=== PATIENT | male | born 1955 | race Caucasian/White ===

== ENCOUNTER 2018-06-22 11:14 | Outpatient (CLI) | payer MEDICAID, SELFPAY ==
[2018-06-22 13:20] LABS: ALT 62 U/L (12-78); AST 54 U/L (15-37); Albumin 3.6 g/dL (3.4-5.0); Alkaline Phosphatase 108 U/L (46-116); Bilirubin, Direct 0.23 mg/dL (0.00-0.20); Bilirubin, Total 0.8 mg/dL (0.2-1.0); Glucose 99 mg/dL (70-100); Total Protein 7.4 g/dL (6.4-8.2)
== END 2018-06-22 11:34 ==
PROVIDERS: PCP Family Medicine; Visit Provider Family Medicine
DX: F10.20 Alcohol dependence, uncomplicated (principal); Z13.1 Encounter for screening for diabetes mellitus
CPT/HCPCS: 36415; 80076; 82947

== ENCOUNTER 2019-01-07 21:59 | Outpatient (REF) | payer MEDICAID, SELFPAY ==
[2019-01-07 22:51] LABS: Kit/Specimen SENT
== END 2019-01-07 22:19 ==
LOC: LBO 21:59
PROVIDERS: PCP Family Medicine; Visit Provider Family Medicine
DX: R69 Illness, unspecified (principal); Z01.89 Encounter for other specified special examinations
CPT/HCPCS: 36415

== ENCOUNTER 2019-07-13 11:00 | Outpatient (CLI) | payer SELFPAY ==
[2019-07-13 12:52] LABS: ALT 34 U/L (16-63); AST 24 U/L (15-37); Albumin 3.9 g/dL (3.4-5.0); Alkaline Phosphatase 113 U/L (46-116); Bilirubin, Total 0.5 mg/dL (0.2-1.0); Calculated LDL 184 mg/dL; Cholesterol 275 mg/dL (50-200); Glucose 102 mg/dL (70-100); HDL Cholesterol 53 mg/dL (40-60); Total Protein 8.5 g/dL (6.4-8.2); Triglyceride 192 mg/dL (30-150)
[2019-07-13 13:19] LABS: Bilirubin, Direct 0.12 mg/dL (0.00-0.20)
== END 2019-07-13 11:20 ==
PROVIDERS: PCP Family Medicine; Visit Provider Family Medicine
DX: Z00.00 Encounter for general adult medical examination without abnormal findings (principal); F10.20 Alcohol dependence, uncomplicated; E66.9 Obesity, unspecified
CPT/HCPCS: 36415; 80061; 80076; 82947

== ENCOUNTER 2022-01-23 16:03 | Emergency (ER) | payer MEDICARE, MEDICAID, SELFPAY ==
[2022-01-23] VITALS (19 sets, daily range): BP systolic 133–163; BP diastolic 85–94; PULSE 80–91; RESP 16–20; TEMP 36.5; O2SAT 91–100
--- NOTE | 2022-01-23 16:27 | W.ED.GENAD ---
Discharge Plan Disposition Patient Disposition: HOME Condition: Stable Discharge Details Clinical Impression: Alcohol abuse, Depression Primary Care Provider: Jeff Sage ED Provider: Moshe Lopez Home Meds and New Rx's Prescriptions: No Action fludrocortisone 0.1 mg Tablet 0.1 mg PO DAILY Qty: 30 0RF chlordiazepoxide HCl 25 mg Capsule 50 mg PO TID Qty: 7 0RF Rx Instructions: 50 x TID x 1 day then 25 bid x 3 days then 12.5 x 3 days Discharge Instructions Instructions: Depression (ED), Abuse of Alcohol (ED) Additional Instructions: Medication reconciliation could not be performed today. Please review your medications with your prescribing physician and take as prescribed. Please start taking thiamine as prescribed daily. Please contact your primary care physician to arrange follow-up. Call first thing on Wednesday. Please follow-up with [facility] and [facility]. Return to the ER immediately for any worsening or new concerning symptoms including worsening depression or of harming yourself. Referrals: [facility] [Outside] [facility] [Outside] Jeff Sage MD [Primary Care Provider] - Discharge Data Discharge Date/Time-TO BE ENTERED AT DEPARTURE: 01/24/22 05:49 HPI General Date/Time Provider Initiated Documentation: 01/23/22 16:26. HPI Narrative: 66-year-old gentleman with a taken [facility] for evaluation by his brother. According to the brother report from [facility] gentleman has a past history of heavy alcohol use, he was found to be confused and disheveled. Oriented to person place but not time. For this reason he was sent to the emergency department for further evaluation. This is a gentleman who endorses consumption of half a bottle of whiskey per day. Ongoing suicidal ideations and feelings of depression. He does endorse having had plans of suicide in the past but not anymore. He does not know why he is in the emergency department and he does not know why he was according medical. He is here stating that he was sent to the hospital for an unknown reason. He states that he is not taking medications currently but that he has been prescribed medications in the past. He does not know why. 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 Related Data Home Medications Medication Instructions Recorded Confirmed chlordiazepoxide HCl 25 mg capsule 50 mg PO TID #7 caps 01/28/22 fludrocortisone 0.1 mg tablet 0.1 mg PO DAILY #30 tabs 01/28/22 Previous Rx's Medication Instructions Recorded chlordiazepoxide HCl 25 mg capsule 50 mg PO TID #7 caps 01/28/22 fludrocortisone 0.1 mg tablet 0.1 mg PO DAILY #30 tabs 01/28/22 Allergies Allergy/AdvReac Type Severity Reaction Status Date / Time Iodine and Iodide Containing Allergy Mild Mild hives Verified 01/23/22 15:27 Produc iodine Allergy Unknown Verified 01/23/22 15:27 Review of Systems Narrative: Constitutional is negative for fevers and chills. Neuro fatigue no malaise HEENT no sore throat no change in voice, no visual hallucinations, no diplopia Cardiovascular no chest pain, no palpitations Pulmonary no cough or shortness of breath GI no abdominal pain no nausea no vomiting negative MSK no myalgias no arthralgias Skin no rashes, no bruises Neuro no paresthesias no tremors Psych positive for depression positive for alcohol abuse Endocrine negative Hematological not on blood thinners Allergiesno rashes no allergies PFSH All Active Problems (Updated 01/30/22 @ 00:04 by CHANDRAKANT SILVA) Depression (Chronic) Erectile dysfunction (Acute) Alcoholism (Acute) Dysthymia (Acute) Suicidal ideations (Acute 08/25/17) Orthostatic hypotension (Chronic 04/20/18) Microscopic hematuria (Acute 04/24/16) Elevated LFTs (Chronic 08/25/17) Benign prostate hyperplasia (Acute 11/20/15) 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 Father No problems noted. Brother No problems noted. Grandfather No problems noted. Grandfather No problems noted. Grandmother No problems noted. Grandmother No problems noted. 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 Disoriented to time. Cooperative calm well-nourished, clean HEENT MMM, LASHON, EOMI Neck supple No JVD Chest CTAB Heart RRR no m/r/g GI S/ND/NT no organomegalies no CVAT BAck intact Skin no rashes Neuro grossly intact ext no edema pysch flat affect Course 18:32 I called Misael's brother. Misael tells me that he does not give to [facility] for evaluation because of intoxication and ongoing suicidal ideations that has been getting worse for the past week. For the reason he was sent to the emergency department. According to Misael, Kyle has been drinking more heavily for few months now. 22:20 the patient required a few doses of IV ativan for agitation. His VS remained normal. He responded well to low doses of ativan x 2. No tremors, no hyperflexia. He appears to be mildly confused but easily redirectable. Reevaluation(s) Reevaluation: X-ray Sign Out Sign Out Data: Sign Out Comment: patient s/o Dr Lopez will need observation and mental health eval in the morning Last updated by Bubba Cruz MD at 01/23/22 23:48
[2022-01-23 17:09] LABS: Abs Immature Grans 0.05 10^3/uL (0.0-0.06); Absolute Eosinophil Count 0.53 10^3/uL (0.0-0.7); Absolute Lymphocyte Count 1.51 10^3/uL (1.2-3.4); Absolute Monocyte Count 0.59 10^3/uL (0.1-0.8); Absolute Neutrophil Count 4.02 10^3/uL (1.2-6.7); Basophils % 1.5; Eosinophils % 7.8; HCT 44.4 % (40.0-50.0); HGB 15.8 g/dL (13.5-17.5); Immature Grans % 0.7; Lymphocytes % 22.2; MCH 33.2 pg (27.0-33.0); MCHC 35.6 % (32.0-36.0); MCV 93 fL (80-95); MPV 10.4 fL (8.0-11.0); Monocytes % 8.7; Neutrophils % 59.1; Platelet Count 170 10^3/uL (130-400); RBC 4.76 10^6/uL (4.36-5.78); RDW 13.5 % (11.8-14.1); RDW-SD 46.8 fL
[2022-01-23 17:24] LABS: Salicylate < 2.8 mg/dL (<2.8)
[2022-01-23 17:26] LABS: Acetaminophen < 2 ug/mL (10-30)
[2022-01-23 17:32] LABS: ALT 135 U/L (16-63); AST 177 U/L (15-37); Albumin 3.6 g/dL (3.4-5.0); Alkaline Phosphatase 96 U/L (46-116); Anion Gap 16.7 mmol/L (3-11); BUN 20 mg/dL (7-18); Bilirubin, Total 1.1 mg/dL (0.2-1.0); CO2 20.3 mmol/L (21.0-32.0); CREATININE 1.1 mg/dL (0.70-1.30); Calcium 8.9 mg/dL (8.5-10.1); Chloride 103 mmol/L (98-107); ETHANOL BLOOD 169.4 mg/dL (<10); Glucose 98 mg/dL (74-106); Potassium 3.5 mmol/L (3.5-5.1); Sodium 140 mmol/L (136-145); TSH (W/Ref FT4) 1.83 uIU/mL (0.36-3.74); Total Protein 7.5 g/dL (6.4-8.2)
[2022-01-23 17:35] LABS: Ammonia < 10 umol/L (11-32)
[2022-01-23] MEDS: diazePAM 5 MG TAB 10 MG PO (17:46)
[2022-01-23] MEDS: LORazepam 2 MG/ML VIAL IVP ×2 (20:19→21:34)
[2022-01-23] MEDS: Normal Saline Flush 10 ML SYR IVP (20:20)
[2022-01-23 21:38] LABS: Bilirubin Negative (Negative); Blood Large (Negative); Clarity Clear (Clear); Glucose Negative (Negative); Ketones Negative (Negative); Leukocyte Esterase Negative (Negative); Nitrite Negative (Negative); Urobilinogen 0.2 EU/dL (Up TO 0.2); pH 6.5 (5-8)
[2022-01-23 21:46] LABS: Source Nasal/Nares
[2022-01-23 21:47] LABS: Bacteria Rare HPF (Negative); C & S Indicated? No; Crystals Negative HPF (Negative); Epithelial Cells Negative HPF (Negative); Mucus Negative (Negative); RBC 0-2 HPF (0-2); WBC 0-2 HPF (0-5)
[2022-01-23 21:50] LABS: *AMPHETAMINES SCREEN URINE Negative (Negative); *BARBITURATES SCREEN URINE Negative (Negative); *BENZODIAZEPINES SCREEN URINE Negative (Negative); Cannabinoids THC Negative (Negative); Cocaine Screen,Urine Negative (Negative); METHADONE URINE SCREEN Negative (Negative); OPIATES URINE SCREEN Negative (Negative)
[2022-01-23 21:51] LABS: Tricyclic Antidepressants Negative (Negative)
[2022-01-23 22:24] LABS: COVID-19 PCR Negative (Negative)
[2022-01-24] VITALS: PULSE 85
[2022-01-24] MEDS: THIAMINE 500 MG in Normal Saline 100 ML 200 MG IVPB (01:11)
[2022-01-24 01:36] VITALS: PULSE 93
[2022-01-24 01:40] VITALS: PULSE 95
[2022-01-24 01:49] VITALS: BP 149/92; O2SAT 92
[2022-01-24 03:19] VITALS: TEMP 37.5
--- NOTE | 2022-01-24 03:19 | W.EDPROG ---
Date of service: 01/24/22 Time of Service: 03:19 Medical Decision Making Patient was signed out by Dr. Cruz. Please see his documentation regarding initial ED presentation and course. Plan at signout was for mental health screening when sober. Patient be given thiamine 500 mg IV. 320--patient reassessed and is requesting discharge. Patient is no longer confused, alert and oriented with decisional making capacity. Patient notes that while he has been depressed recently he has no active thoughts of harming himself. He does state that he feels it would be okay if he but has no suicidal plan. I spoke with patient about his alcohol use and offered medical detox. Patient provided informed refusal of this time. He is not exhibiting any signs of withdrawal at this time. I have contacted [facility] for crisis evaluation. Patient is agreeable to speaking with crisis screener. 430 -- Patient was evaluated by [facility] crisis screener who feels patient can be safely discharged with safety plan. Safety plan established with patient. Will refer to [facility]. Sign Out Sign Out Data: Sign Out Comment: patient s/o Dr Lopez will need observation and mental health eval in the morning Last updated by Bubba Cruz MD at 01/23/22 23:48 Discharge Plan Disposition Patient Disposition: HOME Condition: Stable Discharge Details Clinical Impression: Alcohol abuse, Depression Primary Care Provider: Jeff Sage ED Provider: Moshe Lopez Home Meds and New Rx's Prescriptions: No Action fludrocortisone 0.1 mg Tablet 0.1 mg PO DAILY Qty: 30 0RF chlordiazepoxide HCl 25 mg Capsule 50 mg PO TID Qty: 7 0RF Rx Instructions: 50 x TID x 1 day then 25 bid x 3 days then 12.5 x 3 days Discharge Instructions Instructions: Depression (ED), Abuse of Alcohol (ED) Additional Instructions: Medication reconciliation could not be performed today. Please review your medications with your prescribing physician and take as prescribed. Please start taking thiamine as prescribed daily. Please contact your primary care physician to arrange follow-up. Call first thing on Wednesday. Please follow-up with [facility] and [facility]. Return to the ER immediately for any worsening or new concerning symptoms including worsening depression or of harming yourself. Referrals: [facility] [Outside] [facility] [Outside] Jeff Sage MD [Primary Care Provider] - Discharge Data Discharge Date/Time-TO BE ENTERED AT DEPARTURE: 01/24/22 05:49
[2022-01-24 05:21] VITALS: BP 178/96; PULSE 103; RESP 20; TEMP 36.7; O2SAT 99
== END 2022-01-24 05:49 | disposition home or self-care (01) ==
PROVIDERS: Emergency Medicine; Emergency Provider Student in an Organized Health Care Education/Training Program; PCP Family Medicine
DX: N20.2 Calculus of kidney with calculus of ureter (principal)
CPT/HCPCS: 80053; 80307; 87635; 96374; 99284; 80320; 80329; 81003; 81015; 82140; 84443; 85025; 99283; J2060

== ENCOUNTER 2022-01-26 10:19 | Inpatient (IN) | payer MEDICARE, MEDICAID, SELFPAY ==
[2022-01-26] VITALS (26 sets, daily range): BP systolic 121–177; BP diastolic 80–105; PULSE 60–94; RESP 8–22; TEMP 36.3–36.8; O2SAT 93–99
--- NOTE | 2022-01-26 | DI.US_ITS ---
Exam(s) US ABDOMEN LIMITED EXAM: US ABDOMEN LIMITED CLINICAL HISTORY: liver, hepatic encephalopathy, TECHNIQUE: Ultrasound abdomen performed using standard protocol. COMPARISON: CT ABD/PELVIS WO W CONTRAST from 04/20/2016 FINDINGS: LIVER: fatty infiltration. Posterior portions of the liver are not well seen.. No focal liver lesi ons are seen.. GALLBLADDER: Small stones and sludge in gallbladder neck.. No evidence of wall thickening. No perich olecystic fluid identified. CHANEY'S SIGN: Negative. BILIARY SYSTEM: No intrahepatic or extrahepatic biliary ductal dilation. Right KIDNEY: Few small calculi. No evidence of hydronephrosis. No renal mass identified. 2.2 nohelia timeters cyst near the lower pole. PANCREAS: Normal where visualized. ABDOMINAL AORTA AND IVC: Visualized portions normal caliber. ASCITES: None seen. IMPRESSION: Fatty liver. No focal lesion or biliary dilatation. Nonobstructing right renal calculi. DATA REPOSITORY:
--- NOTE | 2022-01-26 10:30 | RT.EKG_ITS ---
APPROVED REPORT Exam: Resting ECG Reason for Exam: dizzy Patient Location: E HR:105 bpm ECG Measurements Heart Rate 105 AXIS ME 151 P 70 QRSd 88 QRS -76 QT 330 T 67 QTc 436 Conclusion Sinus tachycardia...rate> 99 Probable left atrial enlargement...P >50mS, <-0.10mV V1 Inferior infarct, old...Q >35mS, II III aVF sinus tachycardia at 100, left axis, no STEMI, QTC 430, no Brugada, no WPW, inferior Q waves present, nondiagnostic EKG
--- NOTE | 2022-01-26 10:45 | DI.CT_ITS ---
Exam(s) CT HEAD WO EXAM: CT HEAD WO CLINICAL HISTORY: AMS, etoh, possible trauma. TECHNIQUE: Imaging Protocol: Axial computed tomography images with coronal and sagittal reformatted images were created and reviewed COMPARISON: No exams were available for comparison FINDINGS: Ventricles and Extra axial spaces: Normal in size and morphology for degree of atrophy. Hemorrhage: None. Cerebral parenchyma: Severe atrophy, greatest superiorly, disproportionate to the patient's age. Midline shift: None. Brainstem/Cerebellum: Normal. Calvarium: Normal. Visualized Paranasal sinuses/Mastoids: Clear. Soft Tissues: Unremarkable. IMPRESSION: Atrophy. No acute intracranial process. RADIATION DOSE DELIVERED: 859.08mGy.cm Total DLP DATA REPOSITORY: All CT scans at this facility are submitted to the National Radiology Data Registry (NRDR) Dose Index Registry (DIR) with the [employer] (ACR). RADIATION OPTIMIZATION: All CT scans at this facility use at least one of these dose optimization te chniques: automated exposure control; mA and/or kV adjustment per patient size (includes targeted exa ms where dose is matched to clinical indication); or iterative reconstruction.
[2022-01-26 11:11] LABS: Abs Immature Grans 0.05 10^3/uL (0.0-0.06); Absolute Basophil Count 0.09 10^3/uL (0.0-0.2); Absolute Eosinophil Count 0.52 10^3/uL (0.0-0.7); Absolute Lymphocyte Count 1.18 10^3/uL (1.2-3.4); Absolute Monocyte Count 0.59 10^3/uL (0.1-0.8); Absolute Neutrophil Count 4.15 10^3/uL (1.2-6.7); Basophils % 1.4; Eosinophils % 7.9; HGB 15.5 g/dL (13.5-17.5); Immature Grans % 0.8; Lymphocytes % 17.9; MCH 33.9 pg (27.0-33.0); MCV 94 fL (80-95); MPV 10.7 fL (8.0-11.0); Platelet Count 189 10^3/uL (130-400); RBC 4.57 10^6/uL (4.36-5.78); RDW 13.6 % (11.8-14.1); RDW-SD 46.7 fL; WBC 6.58 10^3/uL (4.4-10.8)
[2022-01-26 11:31] LABS: ALT 131 U/L (16-63); AST 148 U/L (15-37); Albumin 3.5 g/dL (3.4-5.0); Alkaline Phosphatase 111 U/L (46-116); BUN 12 mg/dL (7-18); CREATININE 1.1 mg/dL (0.70-1.30); Calcium 8.8 mg/dL (8.5-10.1); Glucose 115 mg/dL (74-106); Potassium 3.2 mmol/L (3.5-5.1); Total Protein 7.4 g/dL (6.4-8.2); Troponin I < 50 ng/L (<or=60)
[2022-01-26] MEDS: Normal Saline 1,000 ML 1000 ML IV (11:32)
[2022-01-26 11:36] LABS: Anion Gap 14.4 mmol/L (3-11); CO2 20.6 mmol/L (21.0-32.0); Chloride 101 mmol/L (98-107); Sodium 136 mmol/L (136-145)
[2022-01-26 11:39] LABS: ETHANOL BLOOD 30.4 mg/dL (<10); TSH (W/Ref FT4) 2.84 uIU/mL (0.36-3.74)
[2022-01-26] MEDS: POTASSIUM CHLORIDE 20 MEQ/100 ML BAG 50 MEQ IVPB (12:54)
[2022-01-26 12:55] LABS: Source Nasal/Nares
[2022-01-26] MEDS: LORazepam 2 MG/ML VIAL 1 MG IVP (13:08)
--- NOTE | 2022-01-26 13:09 | ED.GENADUL_ITS ---
Discharge Plan Disposition Patient Disposition: [facility] INPATIENT Condition: Stable Discharge Details Chief Complaint: Dizzy/Sync Clinical Impression: Encephalopathy Admit Date/Time: 01/26/22 13:34 Admit Provider: Patricia Rowan Attending Provider: Patricia Rowan Primary Care Provider: Jeff Sage ED Provider: Fina Lopez Discharge Instructions Activity:: Activity as Tolerated Equipment/Supplies:: No Equipment Needed Diet:: As Tolerated Discharge Orders Discharge Orders: Discharge Order (Routine); Ordered 01/29/22 Ordered By: Kandy Dempsey Discharge Data Discharge Date/Time-TO BE ENTERED AT DEPARTURE: 01/26/22 14:53 Medical Decision Making Kyle Niño is a 66 y/o man with h/o alcohol use disorder presenting to the emergency department for confusion. Per record review was seen at 01/23/22 for etoh withdrawal and depression. He was sent to the ED where he was found to be confused, depressed. Recieved thiamine and confusion improved in the emergency department. Pt was seen by AURY and was deemed to be safe for discharge. Pt left the ED AMA. Pt reports that he had wanted to be admitted, but left to go home and get some books he could read while hopsitalized. Pt states that he returns now to complete the recommended hospitalization from his prior AMA discharge. He states that he has some mild confusion but otherwise feels well. He states that he drinks a half bottle of whiskey daily. States that he would like to detox. Denies being in etoh withdrawal now. Denies pain, fevers, SOB, cough, vomiting, diarrhea, numbness, focal weakness, rash. Coy suicidal thoughts, denies any attempt to harm himself. On exam Pt is well and non-toxic appearing. Oriented x2. Non-focal neuro exam. Concern for metabolic/lyte derangement, dehydration, encephalopathy, other. Head trauma not ruled out. Exam/hx at this time not c/w meningitis, sepsis, acute coronary syndrome, CVA. Plan for IV placement, IV thiamine, EKG, screening labs, CT head. Will monitor and reassess. Negative head CT. Plan for admission for encephalopathy. Medical Records Medical records reviewed: Yes I reviewed the patient's medical records. Imaging Data Radiologic Study: Attestation: I personally reviewed and interpreted this imaging study as follows: Radiologist's impression: CT HEAD WO EXAM: ? CT HEAD WO CLINICAL HISTORY: ? AMS, etoh, possible trauma. ? TECHNIQUE:? Imaging Protocol: Axial computed tomography images with coronal and sagittal reformatted images were created and reviewed COMPARISON:? No exams were available for comparison FINDINGS: Ventricles and Extra axial spaces: Normal in size and morphology for degree of atrophy. Hemorrhage: None. Cerebral parenchyma: Severe atrophy, greatest superiorly, disproportionate to the patient's age.? Midline shift: None. Brainstem/Cerebellum: Normal. Calvarium: Normal. Visualized Paranasal sinuses/Mastoids: Clear. Soft Tissues: Unremarkable. IMPRESSION: Atrophy.? No acute intracranial process. Lab Data Lab results reviewed: Yes I reviewed the patient's lab results. ECG Data Attestation: I personally reviewed and interpreted this ECG (s) as follows: Interpretation: EKG shows sinus tachycardia at 100, left axis, no STEMI, QTC 430, no Brugada, no WPW, inferior Q waves present, nondiagnostic EKG HPI General Date/Time Provider Initiated Documentation: 01/26/22 10:37 . Limitations to Documentation: no limitations . Information obtained by: patient, RN notes reviewed and old records reviewed . HPI Narrative: Kyle Niño is a 66 y/o man with h/o alcohol use disorder presenting to the emergency department for confusion. Per record review was seen at 01/23/22 for etoh withdrawal and depression. He was sent to the ED where he was found to be confused, depressed. Recieved thiamine and confusion improved in the emergency department. Pt was seen by AURY and was deemed to be safe for discharge. Pt left the ED AMA. Pt reports that he had wanted to be admitted, but left to go home and get some books he could read while hopsitalized. Pt states that he returns now to complete the recommended hospitalization from his prior AMA discharge. He states that he has some mild confusion but otherwise feels well. He states that he drinks a half bottle of whiskey daily. States that he would like to detox. Denies being in etoh withdrawal now. Denies pain, fevers, SOB, cough, vomiting, diarrhea, numbness, focal weakness, rash. Coy suicidal thoughts, denies any attempt to harm himself. Related Data Home Medications Medication Instructions Recorded Confirmed chlordiazepoxide HCl 25 mg capsule 50 mg PO TID #7 caps 01/28/22 fludrocortisone 0.1 mg tablet 0.1 mg PO DAILY #30 tabs 01/28/22 Previous Rx's Medication Instructions Recorded chlordiazepoxide HCl 25 mg capsule 50 mg PO TID #7 caps 01/28/22 fludrocortisone 0.1 mg tablet 0.1 mg PO DAILY #30 tabs 01/28/22 Allergies Allergy/AdvReac Type Severity Reaction Status Date / Time Iodine and Iodide Containing Allergy Mild Mild hives Verified 01/23/22 15:27 Produc iodine Allergy Unknown Verified 01/23/22 15:27 General Stated Complaint: Dizzy/Sync SHARA: 2 Review of Systems Narrative: Constitutional: denies fevers Eyes: denies eye pain ENT: denies ear pain, dental pain, sore throat Cardiovascular: denies chest pain, edema Respiratory: denies SOB, cough GI: denies abdominal pain, vomiting, diarrhea : denies flank pain MSK: denies back pain, neck pain, arthralgias, myalgias Skin: denies rash Neuro: denies headaches, numbness, weakness, reports confusion PFSH All Active Problems (Updated 02/05/22 @ 12:53 by Fina Lopez MD) Encephalopathy (Acute) Depression (Chronic) Erectile dysfunction (Acute) Alcoholism (Acute) Dysthymia (Acute) Suicidal ideations (Acute 08/25/17) Orthostatic hypotension (Chronic 04/20/18) Microscopic hematuria (Acute 04/24/16) Elevated LFTs (Chronic 08/25/17) Benign prostate hyperplasia (Acute 11/20/15) 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 Father No problems noted. Brother No problems noted. Grandfather No problems noted. Grandfather No problems noted. Grandmother No problems noted. Grandmother No problems noted. 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 Pets and animals: Yes Pets and animals: cat(s) What type of physical activity do you participate in: none Rabia/Taoist: Uatsdin Seatbelt use: always Do you feel safe at home: Yes Do you feel safe in your relationship?: Yes Exam Narrative Exam Narrative: Constitutional: well and [id number], pleasant, conversing normally HENT: head atraumatic/normocephalic/normal inspection, mucous membranes moist Eyes: conjunctiva normal, sclera normal, pupils 3mm b/l Neck: no stridor, normal ROM, trachea midline Chest: normal inspection Resp: normal work of breathing, LCTAB Cardio: normal rate, normal rhythm, no murmur appreciated GI: abdomen soft, non-tender, non-distended Back: normal inspection, no rash Skin: warm, dry, normal color, no rash Neuro: alert, oriented to person and place but not not time, does not know the year or the president, non-focal, 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 software 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, motor 5/5 throughout, no asterixis, normal tone Ext: no edema Psych: normal mood, normal affect, normal behavior Course Vital Signs Vital signs: Vital Signs Temperature 36.3 C L 01/26/22 10:30 Pulse 89 01/26/22 10:30 Respiratory Rate 20 01/26/22 10:30 Blood Pressure 139/89 01/26/22 10:30 Pulse Oximetry 98 01/26/22 10:30 Temperature 36.3 C L 01/26/22 10:30 Temperature Source Temporal Artery Scan 01/26/22 10:30 Pulse 82 01/26/22 11:31 Pulse 81 01/26/22 11:31 Respiratory Rate 11 L 01/26/22 11:31 Respiratory Effort Non-Labored 01/26/22 11:14 Respiratory Depth Normal 01/26/22 11:14 Respiratory Pattern Normal 01/26/22 11:14 Blood Pressure 125/84 01/26/22 11:31 Blood Pressure Mean 92 01/26/22 11:31 Blood Pressure Position Sitting 01/26/22 10:30 Pulse Oximetry 96 01/26/22 11:31 Oxygen Delivery Method Room Air 01/26/22 10:30 Oxygen Flow Rate 0 01/26/22 10:30 Pain Level 0 01/26/22 10:30 Lab/Test Results Lab/Test Results: Laboratory Tests Range/Units 01/26/22 01/26/22 01/26/22 11:00 11:00 11:00 WBC (4.4-10.8) 10^3/uL 6.58 RBC (4.36-5.78) 10^6/uL 4.57 Hgb (13.5-17.5) g/dL 15.5 Hct (40.0-50.0) % 43.0 MCV (80-95) fL 94 MCH (27.0-33.0) pg 33.9 H MCHC (32.0-36.0) % 36.0 RDW (11.8-14.1) % 13.6 Plt Count (130-400) 10^3/uL 189 MPV (8.0-11.0) fL 10.7 Immature Gran % 0.8 Neutrophils % 63.0 Lymphocytes % 17.9 Monocytes % 9.0 Eosinophils % 7.9 Basophils % 1.4 Nucleated RBC % (0.0-0.3) % 0.0 Absolute Neutrophils (1.2-6.7) 10^3/uL 4.15 Absolute Lymphocytes (1.2-3.4) 10^3/uL 1.18 L Absolute Monocytes (0.1-0.8) 10^3/uL 0.59 Absolute Eosinophils (0.0-0.7) 10^3/uL 0.52 Absolute Basophils (0.0-0.2) 10^3/uL 0.09 Sodium (136-145) mmol/L 136 Potassium (3.5-5.1) mmol/L 3.2 L Chloride (98-107) mmol/L 101 Carbon Dioxide (21.0-32.0) mmol/L 20.6 L Anion Gap (3-11) mmol/L 14.4 H BUN (7-18) mg/dL 12 Creatinine (0.70-1.30) mg/dL 1.1 Estimated GFR/1.73 m2 (mL/min/1.73m2) >= 60.00 Glucose (74-106) mg/dL 115 H Calcium (8.5-10.1) mg/dL 8.8 Magnesium (1.8-2.4) mg/dL 2.0 Total Bilirubin (0.2-1.0) mg/dL 1.0 AST (15-37) U/L 148 H ALT (16-63) U/L 131 H Alkaline Phosphatase (46-116) U/L 111 Troponin I (<or=60) ng/L < 50 Total Protein (6.4-8.2) g/dL 7.4 Albumin (3.4-5.0) g/dL 3.5 TSH (0.36-3.74) uIU/mL 2.84 Ethyl Alcohol (<10) mg/dL 30.4 H COVID-19 Source Range/Units 01/26/22 12:46 WBC (4.4-10.8) 10^3/uL RBC (4.36-5.78) 10^6/uL Hgb (13.5-17.5) g/dL Hct (40.0-50.0) % MCV (80-95) fL MCH (27.0-33.0) pg MCHC (32.0-36.0) % RDW (11.8-14.1) % Plt Count (130-400) 10^3/uL MPV (8.0-11.0) fL Immature Gran % Neutrophils % Lymphocytes % Monocytes % Eosinophils % Basophils % Nucleated RBC % (0.0-0.3) % Absolute Neutrophils (1.2-6.7) 10^3/uL Absolute Lymphocytes (1.2-3.4) 10^3/uL Absolute Monocytes (0.1-0.8) 10^3/uL Absolute Eosinophils (0.0-0.7) 10^3/uL Absolute Basophils (0.0-0.2) 10^3/uL Sodium (136-145) mmol/L Potassium (3.5-5.1) mmol/L Chloride (98-107) mmol/L Carbon Dioxide (21.0-32.0) mmol/L Anion Gap (3-11) mmol/L BUN (7-18) mg/dL Creatinine (0.70-1.30) mg/dL Estimated GFR/1.73 m2 (mL/min/1.73m2) Glucose (74-106) mg/dL Calcium (8.5-10.1) mg/dL Magnesium (1.8-2.4) mg/dL Total Bilirubin (0.2-1.0) mg/dL AST (15-37) U/L ALT (16-63) U/L Alkaline Phosphatase (46-116) U/L Troponin I (<or=60) ng/L Total Protein (6.4-8.2) g/dL Albumin (3.4-5.0) g/dL TSH (0.36-3.74) uIU/mL Ethyl Alcohol (<10) mg/dL COVID-19 Source Nasal/Nares PAWSS Have you Been Recently Intoxicated or Drunk Within the Last 30 days?: No Have you Ever Experienced Previous Episodes of Alcohol Withdrawal?: No Have you ever Experienced Withdrawal Seizures?: No Have you ever Experienced Delirium Tremens(DT)s?: No Have you ever undergone Alcohol Rehabilitation Treatment (i.e, inpt ot outpatient treatment programs)?: No Have you ever Experienced Blackouts?: No Have you ever Combined Alcohol with other Downers within the last 90 days?: No Have you ever Combined Alcohol with any other Substance of Abuse during the last 90 days?: No Result: 0
[2022-01-26 13:34] LABS: COVID-19 PCR Negative (Negative)
--- NOTE | 2022-01-26 13:42 | HPE_ITS ---
Date of service: 01/26/22 Time of Service: 13:42 Assessment and Plan Assessment and plan (1) Acute hepatic encephalopathy: Start date: 01/26/22 Start time: 14:03 Status: Acute Assessment and plan: Patient drinks 1/2 bottle whisky a day. Ethyl alcohol 30.[address] revealed atrophy, likely wernikes High dose thiamin CIWA he has never quit drinking before. very confused (2) Alcohol abuse: Start date: 01/26/22 Start time: 14:05 Status: Chronic Assessment and plan: as above (3) Depression: Start date: 01/26/22 Start time: 14:05 Status: Chronic Assessment and plan: stopped taking depression medication about 1-2 months ago, pt confused and brother not sure but depression has gotten worse over the week (4) Elevated LFTs: Start date: 01/26/22 Start time: 14:06 Status: Acute Assessment and plan: Concerned for cirrohsis. Also hep c Will do hep panel and liver u/s (5) Orthostatic hypotension: Start date: 01/26/22 Start time: 14:07 Status: Acute Assessment and plan: Take fludrocortisone for bp, will continue (6) DVT prophylaxis: Start date: 01/26/22 Start time: 14:08 Status: Acute Assessment and plan: heparin subcu (7) Discharge planning issues: Start date: 01/26/22 Start time: 14:08 Status: Acute Assessment and plan: Depends on patient is depressed and SI vs clear and able to make decisions and can get help at home discussed with Dr. Rowan History of Present Illness History of Present Illness Chief Complaint: Hepatic encephalpathy, Alcohol withdrawal Narrative: 66 y.o male seen by myself on Wednesday at urgent care for wanting ETOH w/d drinking a 1/2 Malagasy whiskey daily, he was also having severe depression that has worsened over the week per his brother causing him thoughts of wanting to harm himself. He was confused and dishelved. He was sent to the Emergency room for further management. He was given thiamine 500 mg IV with plans to keep for w/d and MH evaluation. He was cleared by [facility] and considered safe for discharge. He returns to today with increased confusion, ethyl alcohol level of 30.4, disheveled, per ED not having thoughts of SI. Labs revealing K of 3.2 will replete, anion gap 14.4 AST/ALT 148/131. Will add on ammonia level, lipase. Obtain abd u/s to asses liver. Obtain hepatitis panel. High dose thiamine, telemetry, CIWA scoring. Will start libruim and serax prn. Head CT in ED revealed atropy. 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 Father No problems noted. Brother No problems noted. Grandfather No problems noted. Grandfather No problems noted. Grandmother No problems noted. Grandmother No problems noted. 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 Pets and animals: Yes Pets and animals: cat(s) What type of physical activity do you participate in: none Rabia/Orthodox: Taoism Seatbelt use: always Do you feel safe at home: Yes Do you feel safe in your relationship?: Yes Meds Allergies and Home Medications Allergies Allergy/AdvReac Type Severity Reaction Status Date / Time Iodine and Iodide Containing Allergy Mild Mild hives Verified 01/23/22 15:27 Produc iodine Allergy Unknown Verified 01/23/22 15:27 Exam Const General: cooperative, comfortable, no acute distress, disheveled and ill appearing chronically Nutritional Appearance: obese Orientation: alert, awake, not oriented x3 and confused HENMT Head: normal to inspection and normocephalic Mouth: moist mucous membranes Eyes Eyelids: eyelids normal Pupils: PERRL EOM: EOM intact bilaterally Neck Neck: normal visual inspection and no JVD Lymphatic: no lymphadenopathy noted Resp Effort & Inspection: normal respiratory effort Auscultation: clear to auscultation bilaterally Cardio Jugular venous pressure: no JVD Rhythm: regular rhythm Heart Sounds: S1 normal GI Auscultation: normal bowel sounds General: No CVA tenderness and deferred Skin General skin exam: no rashes or lesions noted Neuro General: patient alert, patient awake and not oriented x3 Cognition: abnormal cognition Speech: speech normal Gait: normal gait Extrem General: normal to inspection, full ROM and no clubbing, cyanosis or edema Results Labs Result diagrams: 01/26/22 11:00 01/26/22 11:00 Labs: Laboratory Results - last 24 hr 01/26/22 01/26/22 01/26/22 11:00 11:00 11:00 WBC 6.58 RBC 4.57 Hgb 15.5 Hct 43.0 MCV 94 MCH 33.9 H MCHC 36.0 RDW 13.6 Plt Count 189 MPV 10.7 Immature Gran % 0.8 Neutrophils % 63.0 Lymphocytes % 17.9 Monocytes % 9.0 Eosinophils % 7.9 Basophils % 1.4 Nucleated RBC % 0.0 Absolute Neutrophils 4.15 Absolute Lymphocytes 1.18 L Absolute Monocytes 0.59 Absolute Eosinophils 0.52 Absolute Basophils 0.09 Sodium 136 Potassium 3.2 L Chloride 101 Carbon Dioxide 20.6 L Anion Gap 14.4 H BUN 12 Creatinine 1.1 Estimated GFR/1.73 m2 >= 60.00 Glucose 115 H Calcium 8.8 Magnesium 2.0 Total Bilirubin 1.0 AST 148 H ALT 131 H Alkaline Phosphatase 111 Troponin I < 50 Total Protein 7.4 Albumin 3.5 TSH 2.84 Ethyl Alcohol 30.4 H COVID-19 Source SARS-CoV-2 (PCR) 01/26/22 12:46 WBC RBC Hgb Hct MCV MCH MCHC RDW Plt Count MPV Immature Gran % Neutrophils % Lymphocytes % Monocytes % Eosinophils % Basophils % Nucleated RBC % Absolute Neutrophils Absolute Lymphocytes Absolute Monocytes Absolute Eosinophils Absolute Basophils Sodium Potassium Chloride Carbon Dioxide Anion Gap BUN Creatinine Estimated GFR/1.73 m2 Glucose Calcium Magnesium Total Bilirubin AST ALT Alkaline Phosphatase Troponin I Total Protein Albumin TSH Ethyl Alcohol COVID-19 Source Nasal/Nares SARS-CoV-2 (PCR) Negative Last Vital Signs Temp 36.3 C L 01/26/22 10:30 Pulse 82 01/26/22 11:31 Resp 11 L 01/26/22 11:31 BP 125/84 01/26/22 11:31 Pulse Ox 96 01/26/22 11:31 PAWSS Have you Been Recently Intoxicated or Drunk Within the Last 30 days?: No Have you Ever Experienced Previous Episodes of Alcohol Withdrawal?: No Have you ever Experienced Withdrawal Seizures?: No Have you ever Experienced Delirium Tremens(DT)s?: No Have you ever undergone Alcohol Rehabilitation Treatment (i.e, inpt ot outpatient treatment programs)?: No Have you ever Experienced Blackouts?: No Have you ever Combined Alcohol with other Downers within the last 90 days?: No Have you ever Combined Alcohol with any other Substance of Abuse during the last 90 days?: No Result: 0
[2022-01-26] MEDS: THIAMINE 100 MG in Normal Saline 100 ML 200 MG IVPB (13:49)
[2022-01-26 14:44] LABS: Lab Add On Test DONE
[2022-01-26 14:48] LABS: Lipase 334 U/L (73-393)
[2022-01-26 14:50] LABS: Ammonia < 10 umol/L (11-32)
[2022-01-26 14:56] LABS: Troponin I < 50 ng/L (<or=60)
[2022-01-26] MEDS: chlordiazePOXIDE 25 MG CAP PO (16:14)
[2022-01-26] MEDS: Normal Saline Flush 10 ML SYR IVP (16:14)
[2022-01-26] MEDS: Heparin 5,000 UNITS/ML VIAL 5000 UNITS SC ×2 (16:14→21:51)
[2022-01-26] MEDS: THIAMINE 500 MG in Normal Saline 100 ML 200 MG IVPB (16:14)
[2022-01-26] MEDS: chlordiazePOXIDE 25 MG CAP 50 MG PO (20:06)
[2022-01-26] MEDS: Melatonin 3 MG TAB 6 MG PO (21:51)
[2022-01-27] VITALS (12 sets, daily range): BP systolic 128–164; BP diastolic 75–105; PULSE 78–89; RESP 14–19; TEMP 35.8–36.8; O2SAT 92–98
[2022-01-27] MEDS: THIAMINE 500 MG in Normal Saline 100 ML 200 MG IVPB ×4 (00:14→23:55)
[2022-01-27] MEDS: Heparin 5,000 UNITS/ML VIAL 5000 UNITS SC (05:22)
[2022-01-27 07:40] LABS: Abs Immature Grans 0.04 10^3/uL (0.0-0.06); Absolute Basophil Count 0.08 10^3/uL (0.0-0.2); Absolute Eosinophil Count 0.57 10^3/uL (0.0-0.7); Absolute Monocyte Count 0.51 10^3/uL (0.1-0.8); Basophils % 1.1; Eosinophils % 8.1; HCT 43.2 % (40.0-50.0); HGB 14.9 g/dL (13.5-17.5); Immature Grans % 0.6; Lymphocytes % 18.6; MCH 33.3 pg (27.0-33.0); MCHC 34.5 % (32.0-36.0); MCV 96 fL (80-95); MPV 10.7 fL (8.0-11.0); Monocytes % 7.3; Neutrophils % 64.3; Platelet Count 165 10^3/uL (130-400); RBC 4.48 10^6/uL (4.36-5.78); RDW 13.7 % (11.8-14.1); RDW-SD 48.8 fL
[2022-01-27 07:53] LABS: ALT 105 U/L (16-63); AST 90 U/L (15-37); Alkaline Phosphatase 95 U/L (46-116); Anion Gap 7.3 mmol/L (3-11); BUN 12 mg/dL (7-18); Bilirubin, Total 1.1 mg/dL (0.2-1.0); CO2 26.7 mmol/L (21.0-32.0); Calcium 8.5 mg/dL (8.5-10.1); Chloride 105 mmol/L (98-107); Glucose 105 mg/dL (74-106); Potassium 3.4 mmol/L (3.5-5.1); Sodium 139 mmol/L (136-145); Total Protein 6.8 g/dL (6.4-8.2)
[2022-01-27] MEDS: chlordiazePOXIDE 25 MG CAP 50 MG PO ×3 (07:53→19:35)
[2022-01-27] MEDS: Multivitamin TAB 1 TAB PO (07:53)
[2022-01-27] MEDS: Normal Saline Flush 10 ML SYR IVP ×3 (07:53→16:48)
[2022-01-27] MEDS: Fludrocortisone 0.1 MG TAB PO (07:53)
[2022-01-27] MEDS: Citalopram 20 MG TAB PO (07:54)
[2022-01-27] MEDS: Folic Acid 1 MG TAB PO (07:54)
[2022-01-27 08:11] LABS: Lab Add On Test COMPLETED
--- NOTE | 2022-01-27 08:38 | INITIAL_ITS ---
- If Service Date Differs Date of service: 01/27/22 Time of Service: 08:40 Care Management Initial Assess REASON FOR HOSPITALIZATION:: Hepatic encephalopathy, ETOH withdrawal PAST MEDICAL HISTORY/PAST SURGICAL HISTORY:: Acute hepatic encephalopathy (Acute). DVT prophylaxis (Acute). Discharge planning issues (Acute). Alcohol abuse (Chronic). Depression (Chronic). Erectile dysfunction (Acute). Alcoholism (Acute). Dysthymia (Acute). Suicidal ideations (Acute 08/25/17). Orthostatic hypotension (Acute 04/20/18). Microscopic hematuria (Acute 04/24/16). Elevated LFTs (Acute 08/25/17). Benign prostate hyperplasia (Acute 11/20/15). 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 Independent with ADLs, complicated quality of life due to ongoing challenges with GRIFFIN. CURRENT FUNCTIONAL STATUS:: Kyle is being closely monitored and treated per [facility] protocol for alcohol withdrawal. CM continues to follow. ADVANCE DIRECTIVES:: None on file. Has patient been provided with info about the portal/API?: Yes Did the patient sign up for the portal?: No CODE STATUS:: Full Code INSURANCE COVERAGE / FINANCIAL ISSUES:: Medicare. Medicaid CURRENT HOME/COMMUNITY SERVICES/EQUIPMENT:: None, currently. PRIMARY CARE PHYSICIAN:: Jeff Sage POTENTIAL DISCHARGE NEEDS:: value stream coach, [facility]. PATIENT/FAMILY EDUCATION NEEDS:: Review discharge instructions, discuss Ask Me Three. ANTICIPATED BARRIERS TO DISCHARGE:: None identified at this time. TRANSPORTATION:: Via private vehicle. PLAN:: Kyle will meet with a head boys tennis coach and have a referral sent for [facility]. He has had multiple ED visits, per MD and appears to be struggling to stabilize in the community. Anticipate he will return home when ready via private vehicle with family or via RCT, CM continues to follow.
[2022-01-27 08:50] LABS: Folate 2.2 ng/mL (8.6-20.0); Vitamin B12 415 pg/mL (193-986)
[2022-01-27] MEDS: LORazepam 2 MG/ML VIAL 1 MG IVP (16:47)
--- NOTE | 2022-01-27 17:14 | W.PM.PROGNOT ---
Date of Service Date of service: 01/27/22 Time of Service: 10:30 Assessment and Plan Assessment and plan (1) Alcohol abuse: Assessment and plan: CIWA 1 to 9 in the past 24 hours; will continue protocol High dose thiamine initiated on 01/26 re:Warnicke's (2) Depression: Status: Chronic Assessment and plan: Pt reported not being compliant with depression drugs since he has moved to [place] (3) Elevated LFTs: Status: Chronic Assessment and plan: Ak phos 95 from 111; AST 90 from 148; ALT 105 from 131; trending down Hep. panel pending CT ABD/PELVIS? LIVER:? fatty infiltration.? Posterior portions of the liver are not well seen..? No focal liver lesions are seen.. Fatty liver.? No focal lesion or biliary dilatation.? Nonobstructing right renal calculi (4) Orthostatic hypotension: Status: Chronic Assessment and plan: Will continue fludrocortisone for bp (5) DVT prophylaxis: Assessment and plan: heparin subcutaneous discontinued, pt ambulates (6) Discharge planning issues: Assessment and plan: Depends on patient is depressed and SI vs clear and able to make decisions and can get help at home discussed with Dr. Rowan Subjective Subjective Patient reports: no new complaints, feels better, tolerating a regular diet, voiding w/o difficulty, bowel movement and afebrile; denies diarrhea, nausea or vomiting Exam Const General: cooperative, comfortable, no acute distress, disheveled and ill appearing chronically Nutritional Appearance: obese Orientation: alert, awake and confused [facility] Head: normal to inspection and normocephalic Mouth: moist mucous membranes Eyes General: appearance normal, both eyes and all related structures Alignment and Position: alignment normal and position normal Neck Neck: normal visual inspection and no JVD Chest Chest: normal inspection of the chest Resp Effort & Inspection: normal respiratory effort Auscultation: clear to auscultation bilaterally Cardio Jugular venous pressure: no JVD Rhythm: regular rhythm Heart Sounds: S1 normal and S2 normal Pulses: radial pulses present and dorsalis pedis present GI Inspection: obesity Auscultation: normal bowel sounds General: No CVA tenderness and deferred Back/Spine/Pelvis Back: no CVA tenderness Skin General skin exam: no rashes or lesions noted Neuro General: patient alert, patient awake, not oriented x3 and oriented Patient Orientation: Person and Place Cognition: abnormal cognition Speech: speech normal Extrem General: normal to inspection, full ROM and no clubbing, cyanosis or edema Right upper extremity: normal to inspection Left upper extremity: normal to inspection Right lower extremity: normal to inspection Left lower extremity: normal to inspection Objective Last Vital Signs Temp 97.5 F L 01/27/22 16:58 Pulse 78 01/27/22 16:58 Resp 18 01/27/22 16:58 BP 164/100 H 01/27/22 16:58 Pulse Ox 98 01/27/22 16:58 Laboratory Results - last 24 hr 01/27/22 01/27/22 01/27/22 07:15 07:15 07:15 WBC 7.00 RBC 4.48 Hgb 14.9 Hct 43.2 MCV 96 H MCH 33.3 H MCHC 34.5 D RDW 13.7 Plt Count 165 MPV 10.7 Immature Gran % 0.6 Neutrophils % 64.3 Lymphocytes % 18.6 Monocytes % 7.3 Eosinophils % 8.1 Basophils % 1.1 Nucleated RBC % 0.0 Absolute Neutrophils 4.50 Absolute Lymphocytes 1.30 Absolute Monocytes 0.51 Absolute Eosinophils 0.57 Absolute Basophils 0.08 Sodium 139 Potassium 3.4 L Chloride 105 Carbon Dioxide 26.7 Anion Gap 7.3 BUN 12 Creatinine 1.0 Estimated GFR/1.73 m2 >= 60.00 Glucose 105 Calcium 8.5 Total Bilirubin 1.1 H AST 90 H ALT 105 H Alkaline Phosphatase 95 Total Protein 6.8 Albumin 3.0 L Vitamin B12 Folate Hepatitis A IgM Ab Cancelled Hep Bs Antigen Cancelled Hep B Core Total Ab Cancelled Hepatitis C Antibody Cancelled Add-On Test Request 01/27/22 01/27/22 07:15 07:15 WBC RBC Hgb Hct MCV MCH MCHC RDW Plt Count MPV Immature Gran % Neutrophils % Lymphocytes % Monocytes % Eosinophils % Basophils % Nucleated RBC % Absolute Neutrophils Absolute Lymphocytes Absolute Monocytes Absolute Eosinophils Absolute Basophils Sodium Potassium Chloride Carbon Dioxide Anion Gap BUN Creatinine Estimated GFR/1.73 m2 Glucose Calcium Total Bilirubin AST ALT Alkaline Phosphatase Total Protein Albumin Vitamin B12 415 Folate 2.2 L Hepatitis A IgM Ab Hep Bs Antigen Hep B Core Total Ab Hepatitis C Antibody Add-On Test Request COMPLETED PAWSS Have you Been Recently Intoxicated or Drunk Within the Last 30 days?: Yes Have you Ever Experienced Previous Episodes of Alcohol Withdrawal?: No Have you ever Experienced Withdrawal Seizures?: No Have you ever Experienced Delirium Tremens(DT)s?: No Have you ever undergone Alcohol Rehabilitation Treatment (i.e, inpt ot outpatient treatment programs)?: No Have you ever Experienced Blackouts?: No Have you ever Combined Alcohol with other Downers within the last 90 days?: No Have you ever Combined Alcohol with any other Substance of Abuse during the last 90 days?: No Positive Blood Alcohol level on Presentation? [PCS.BAL]: Yes Evidence of Increased Autonomic Activity (i.e. HR>120, tremor, sweating, agitation, nausea)?: Yes Result: 3
[2022-01-27] MEDS: Melatonin 3 MG TAB 6 MG PO (21:08)
[2022-01-27 21:30] LABS: Bilirubin Negative (Negative); Blood Negative (Negative); Clarity Clear (Clear); Glucose Negative (Negative); Ketones Negative (Negative); Leukocyte Esterase Trace (Negative); Nitrite Negative (Negative)
[2022-01-27 21:36] LABS: Bacteria Few HPF (Negative); C & S Indicated? No; Casts Negative LPF (Negative); Crystals Negative HPF (Negative); Epithelial Cells Few HPF (Negative); Mucus Trace (Negative); RBC 0-2 HPF (0-2)
[2022-01-27 23:31] LABS: *AMPHETAMINES SCREEN URINE Negative (Negative); *BARBITURATES SCREEN URINE Negative (Negative); *BENZODIAZEPINES SCREEN URINE Positive (Negative); Cannabinoids THC Negative (Negative); Cocaine Screen,Urine Negative (Negative); METHADONE URINE SCREEN Negative (Negative); OPIATES URINE SCREEN Negative (Negative)
[2022-01-27 23:33] LABS: Tricyclic Antidepressants Negative (Negative)
[2022-01-28 03:58] VITALS: BP 141/87; PULSE 84; RESP 19; TEMP 36.3; O2SAT 95
[2022-01-28 07:28] VITALS: BP 154/103; PULSE 85; RESP 20; TEMP 36.8; O2SAT 94
[2022-01-28] MEDS: Multivitamin TAB 1 TAB PO (08:01)
[2022-01-28] MEDS: Folic Acid 1 MG TAB PO (08:01)
[2022-01-28] MEDS: chlordiazePOXIDE 25 MG CAP 50 MG PO ×3 (08:01→21:00)
[2022-01-28] MEDS: Citalopram 20 MG TAB PO (08:02)
[2022-01-28] MEDS: Normal Saline Flush 10 ML SYR IVP ×3 (08:02→23:16)
[2022-01-28] MEDS: Fludrocortisone 0.1 MG TAB PO (08:02)
[2022-01-28] MEDS: THIAMINE 500 MG in Normal Saline 100 ML 200 MG IVPB ×3 (08:04→23:16)
[2022-01-28 09:35] LABS: Anion Gap 9.3 mmol/L (3-11); BUN 10 mg/dL (7-18); CO2 24.7 mmol/L (21.0-32.0); CREATININE 1.1 mg/dL (0.70-1.30); Calcium 8.6 mg/dL (8.5-10.1); Chloride 105 mmol/L (98-107); Glucose 164 mg/dL (74-106); Potassium 3.2 mmol/L (3.5-5.1); Sodium 139 mmol/L (136-145)
--- NOTE | 2022-01-28 10:18 | CMPROGNOTE_ITS ---
- If Service Date Differs Date of service: 01/28/22 Time of Service: 10:18 Care Management Progress Note S/O: Per report, Kyle is not yet medically cleared. He met with [facility] Clinical Super[facility] this morning, who assisted him with intake for [facility]. He was accepted at [facility] for tomorrow, as long as he is medically cleared at that time for discharge. Kyle was sitting up in his chair when CM met with him. CM reviewed the plan, which he is happy about. [facility] Clinical Supervisor, will drive him to [facility] at 9am, if he is medically cleared at that time. CM will continue to follow. A: Kyle is a 66 year old male admitted to [facility] on 01/26/22 for hepatic encephalopathy, ETOH withdrawal. P: Kyle will meet with a tin recovery worker and have a referral sent for [facility]. He has had multiple ED visits, per MD and appears to be struggling to stabilize in the community. Anticipate he will return home when ready via private vehicle with family or via RCT, CM continues to follow.
[2022-01-28 10:31] VITALS: BP 109/70; PULSE 84; RESP 20; TEMP 36.4; O2SAT 96
[2022-01-28 11:07] LABS: HBs Antibody, Qual Negative (See Note); HBs Antibody, Quant <3.1 mIU/mL (See Note); Hepatitis B Core Antibody Negative (Negative); Hepatitis B surface Ag Negative (Negative); Hepatitis C Ab w Rflx HCV PCR Negative (Negative)
[2022-01-28 12:01] LABS: Hep A Total Ab w Rflx IgM Negative (Negative)
--- NOTE | 2022-01-28 15:32 | PGE_ITS ---
Date of Service Date of service: 01/28/22 Time of Service: 15:33 Assessment and Plan Assessment and plan (1) Alcohol abuse: Start date: 01/28/22 Start time: 16:07 Status: Chronic Assessment and plan: CIWA 0-8 over last 24 with 8 at 12 pm. High dose thiamine initiated on 01/26 re:Warnicke's (2) Depression: Start date: 01/28/22 Start time: 16:33 Status: Chronic Assessment and plan: Pt reported not being compliant with depression drugs since he has moved to [place] (3) Elevated LFTs: Start date: 01/28/22 Start time: 16:33 Status: Chronic Assessment and plan: Liver enzymes trending down Hep. panel negative CT ABD/PELVIS? LIVER:? fatty infiltration.? Posterior portions of the liver are not well seen..? No focal liver lesions are seen.. Fatty liver.? No focal lesion or biliary dilatation.? Nonobstructing right renal calculi (4) Orthostatic hypotension: Start date: 01/28/22 Start time: 16:34 Status: Chronic Assessment and plan: Will continue fludrocortisone for bp (5) DVT prophylaxis: Start date: 01/28/22 Start time: 16:35 Status: Acute Assessment and plan: heparin subcutaneous discontinued, pt ambulates (6) Discharge planning issues: Start date: 01/28/22 Start time: 16:35 Status: Acute Assessment and plan: Patient has bed at [facility] tomorrow for [address] Rowan Subjective Subjective Patient reports: no new complaints Interval history since last seen: Sitting up in chair. Patient has a bed at [facility] tomorrow for 9 am. He is confused at times. 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 Not w/d at this time no SI Exam Const General: cooperative, comfortable, no acute distress and ill appearing chronically Nutritional Appearance: obese Orientation: alert, awake, not oriented x3, oriented to person and oriented to place Eyes Eyelids: eyelids normal Pupils: PERRL EOM: EOM intact bilaterally Neck Neck: normal visual inspection and no JVD Lymphatic: no lymphadenopathy noted Resp Effort & Inspection: normal respiratory effort Auscultation: clear to auscultation bilaterally Cardio Jugular venous pressure: no JVD Rhythm: regular rhythm Heart Sounds: S1 normal GI Auscultation: normal bowel sounds Skin General skin exam: no rashes or lesions noted Neuro General: patient alert, patient awake, not oriented x3 and oriented Patient Orientation: Person and Place Speech: speech normal Gait: normal gait Extrem General: normal to inspection, full ROM and no clubbing, cyanosis or edema Objective Last Vital Signs Temp 36.4 C 01/28/22 10:31 Pulse 84 01/28/22 10:31 Resp 20 01/28/22 10:31 BP 109/70 01/28/22 10:31 Pulse Ox 96 01/28/22 10:31 Laboratory Results - last 24 hr 01/27/22 01/27/22 01/27/22 07:15 21:00 21:00 Sodium Potassium Chloride Carbon Dioxide Anion Gap BUN Creatinine Estimated GFR/1.73 m2 Glucose Calcium Urine Color Yellow Urine Clarity Clear Urine pH 6.0 Ur Specific [place] 1.020 Urine Protein Negative Urine Ketones Negative Urine Blood Negative Urine Nitrite Negative Urine Bilirubin Negative Urine Urobilinogen 1.0 H Ur Leukocyte Esterase Trace H Urine RBC 0-2 Urine WBC 10-20 H Ur Epithelial Cells Few Urine Crystals Negative Urine Bacteria Few Urine Casts Negative Urine Mucus Trace Ur Culture Indicated? No Urine Glucose Negative Urine Opiates Screen Negative Urine Methadone Screen Negative Ur Barbiturates Screen Negative Ur Tricyclics Screen Negative Ur Amphetamines Screen Negative U Benzodiazepines Scrn Positive A Urine Cocaine Screen Negative Ur THC Screen Negative Hepatitis A Ab Total Negative Hep Bs Antigen Negative Hep Bs Antibody Negative Hep Bs Antibody, Quant <3.1 Hep B Core Total Ab Negative Hepatitis C Antibody Negative 01/28/22 09:23 Sodium 139 Potassium 3.2 L Chloride 105 Carbon Dioxide 24.7 Anion Gap 9.3 BUN 10 Creatinine 1.1 Estimated GFR/1.73 m2 >= 60.00 Glucose 164 H Calcium 8.6 Urine Color Urine Clarity Urine pH Ur Specific [place] Urine Protein Urine Ketones Urine Blood Urine Nitrite Urine Bilirubin Urine Urobilinogen Ur Leukocyte Esterase Urine RBC Urine WBC Ur Epithelial Cells Urine Crystals Urine Bacteria Urine Casts Urine Mucus Ur Culture Indicated? Urine Glucose Urine Opiates Screen Urine Methadone Screen Ur Barbiturates Screen Ur Tricyclics Screen Ur Amphetamines Screen U Benzodiazepines Scrn Urine Cocaine Screen Ur THC Screen Hepatitis A Ab Total Hep Bs Antigen Hep Bs Antibody Hep Bs Antibody, Quant Hep B Core Total Ab Hepatitis C Antibody PAWSS Have you Been Recently Intoxicated or Drunk Within the Last 30 days?: Yes Have you Ever Experienced Previous Episodes of Alcohol Withdrawal?: No Have you ever Experienced Withdrawal Seizures?: No Have you ever Experienced Delirium Tremens(DT)s?: No Have you ever undergone Alcohol Rehabilitation Treatment (i.e, inpt ot outpatient treatment programs)?: No Have you ever Experienced Blackouts?: No Have you ever Combined Alcohol with other Downers within the last 90 days?: No Have you ever Combined Alcohol with any other Substance of Abuse during the last 90 days?: No Positive Blood Alcohol level on Presentation? [PCS.BAL]: Yes Evidence of Increased Autonomic Activity (i.e. HR>120, tremor, sweating, agitation, nausea)?: Yes Result: 3
[2022-01-28 16:05] VITALS: BP 121/60; PULSE 77; RESP 18; TEMP 36.5; O2SAT 95
--- NOTE | 2022-01-28 16:36 | W.PM.DS.N ---
Date of service: 01/28/22 Time of Service: 16:36 DS: Diagnosis Discharge Diagnosis (1) Alcohol abuse: Start date: 01/28/22 Start time: 16:36 Status: Chronic Asessment and Plan: Patient has been a long time alcohol user who has never gone without drinking. Heat CT revealing atrophy. 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 He received high dose thiamine Brought in by brother after he was concerned that he was stating he wanted to harm himself and had gotten worse after 1 week. He has not taken his depression meds in 1-2 months. He has gone through w/d with no sx or other (2) Depression: Start date: 01/28/22 Start time: 16:38 Status: Chronic Asessment and Plan: Restarted on celexa. (3) Elevated LFTs: Start date: 01/28/22 Start time: 16:38 Status: Chronic Asessment and Plan: Chronic. AST has improved since admission from 177 to 90 and ALT 135 to 105 Hep panel was negative. abd u/s: FINDINGS: LIVER:? fatty infiltration.? Posterior portions of the liver are not well seen..? No focal liver lesions are seen.. GALLBLADDER: Small stones and sludge in gallbladder neck..? No evidence of wall thickening. No pericholecystic fluid identified. CHANEY'S SIGN: Negative. BILIARY SYSTEM: No intrahepatic or extrahepatic biliary ductal dilation. Right KIDNEY:? Few small calculi.? No evidence of hydronephrosis. No renal mass? identified.? 2.2 centimeters cyst near the lower pole. PANCREAS: Normal where visualized. ABDOMINAL AORTA AND IVC: Visualized portions normal caliber. ASCITES: None seen. IMPRESSION: Fatty liver.? No focal lesion or biliary dilatation.? Nonobstructing right renal calculi. (4) Orthostatic hypotension: Start date: 01/28/22 Start time: 16:46 Status: Chronic Asessment and Plan: Patient takes fludrocortisone for this continue on discharge. Discuss with Dr. Rowan Discharge Plan Disposition Patient Disposition: OTHER Condition: Stable Discharge Details Reason For Visit: Hepatic encepalopathy,EOTH withdrawl Admit Date/Time: 01/26/22 13:34 Admit Provider: Patricia Rowan Attending Provider: Harpal,Patricia A Primary Care Provider: Jeff Sage Hospital Course Hospital Course: 66 y.o male seen by myself on Wednesday at urgent care for wanting ETOH w/d drinking a 1/2 Sherman whiskey daily, he was also having severe depression that worsened over the week per his brother causing him thoughts of wanting to harm himself. He was confused and dishelved. He was sent to the Emergency room for further management. He was given thiamine 500 mg IV with plans to keep for w/d and evaluation. He was cleared by [facility] and considered safe for discharge so he was sent home on 01/24. He returns to today with increased confusion, ethyl alcohol level of 30.4, disheveled, per ED not having thoughts of SI. Labs revealing K of 3.2 repleted, anion gap 14.4 AST/ALT 148/131. He was admitted for further management. Liver enzymes have improved as above, hep panel negative. U/s per above. Patient has gone through w/d and now been cleared for [facility] where he has been accepted for 9 am in the morning. Home Meds and New Rx's Prescriptions: New fludrocortisone 0.1 mg Tablet 0.1 mg PO DAILY Qty: 30 0RF chlordiazepoxide HCl 25 mg Capsule 50 mg PO TID Qty: 7 0RF Rx Instructions: 50 x TID x 1 day then 25 bid x 3 days then 12.5 x 3 days Discharge Instructions Instructions: Abuse of Alcohol (DC), Alcohol Withdrawal (DC), Alcohol Dependence (ED) Additional Instructions: Discharge to [facility] Activity:: Activity as Tolerated Equipment/Supplies:: No Equipment Needed Diet:: As Tolerated Discharge Orders Discharge Orders: Discharge Order (Routine); Ordered 01/29/22 Ordered By: Kandy Dempsey DS: Summary Time Spent with Patient providing and/or coordinating discharge services: Less than 30 minutes Status at Discharge Functional status at discharge: independent ambulation Overall status at discharge: patient is progressing back to baseline Mental Status: other Speech and Movement: speech and movement normal Mood: other Affect: other Exam Const General: cooperative, comfortable, no acute distress and ill appearing chronically Nutritional Appearance: obese Orientation: alert, awake, not oriented x3, oriented to person and oriented to place Eyes Eyelids: eyelids normal Pupils: PERRL EOM: EOM intact bilaterally Neck Neck: normal visual inspection and no JVD Lymphatic: no lymphadenopathy noted Resp Effort & Inspection: normal respiratory effort Auscultation: clear to auscultation bilaterally Cardio Jugular venous pressure: no JVD Rhythm: regular rhythm Heart Sounds: S1 normal GI Auscultation: normal bowel sounds Skin General skin exam: no rashes or lesions noted Neuro General: patient alert, patient awake, not oriented x3 and oriented Patient Orientation: Person and Place Speech: speech normal Gait: normal gait Extrem General: normal to inspection, full ROM and no clubbing, cyanosis or edema Psych Mental Status: other Speech and Movement: speech and movement normal Mood: other Affect: other DS: Data Vitals/I&O Vitals and I&O: Vital Signs Temperature 36.5 C 01/28/22 16:05 Temperature Source Tympanic 01/28/22 16:05 Pulse 77 01/28/22 16:05 Pulse Rhythm Regular 01/28/22 07:36 Pulse 94 H 01/26/22 14:10 Respiratory Rate 18 01/28/22 16:05 Respiratory Effort Non-Labored 01/28/22 07:36 Respiratory Depth Normal 01/28/22 07:36 Respiratory Pattern Normal 01/28/22 07:36 Blood Pressure 121/60 01/28/22 16:05 Blood Pressure Mean 99 01/26/22 14:01 Blood Pressure Position Sitting 01/26/22 10:30 Pulse Oximetry 95 01/28/22 16:05 Oxygen Delivery Method Room Air 01/28/22 16:05 Oxygen Flow Rate 0 01/28/22 16:05 Pain Level 0 01/28/22 16:05 Comment 01/27/22 23:58 Intake & Output 01/27/22 01/28/22 01/28/22 23:59 11:59 23:59 Intake Total 205 / 895 410 / 410 Output Total 230 / 230 Balance -25 / 665 410 / 410 Intake: IV 105 / 315 210 / 210 Oral 100 / 580 200 / 200 Output: Urine 230 / 230 Other: Urine Color Pale Yellow Yellow Urine Appearance Clear Clear Urine Odor None Comment pT voids directly in toilet and flushes before assesment could be made Stool Size Large Stool Characteristics Soft Formed Voiding Methods Toilet Toilet Data Completed and Pending Completed studies during hospitalization [Text1]: FINDINGS: Ventricles and Extra axial spaces: Normal in size and morphology for degree of atrophy. Hemorrhage: None. Cerebral parenchyma: Severe atrophy, greatest superiorly, disproportionate to the patient's age.? Midline shift: None. Brainstem/Cerebellum: Normal. Calvarium: Normal. Visualized Paranasal sinuses/Mastoids: Clear. Soft Tissues: Unremarkable. IMPRESSION: Atrophy.? No acute intracranial process. FINDINGS: LIVER:? fatty infiltration.? Posterior portions of the liver are not well seen..? No focal liver lesions are seen.. GALLBLADDER: Small stones and sludge in gallbladder neck..? No evidence of wall thickening. No pericholecystic fluid identified. CHANEY'S SIGN: Negative. BILIARY SYSTEM: No intrahepatic or extrahepatic biliary ductal dilation. Right KIDNEY:? Few small calculi.? No evidence of hydronephrosis. No renal mass? identified.? 2.2 centimeters cyst near the lower pole. PANCREAS: Normal where visualized. ABDOMINAL AORTA AND IVC: Visualized portions normal caliber. ASCITES: None seen. IMPRESSION: Fatty liver.? No focal lesion or biliary dilatation.? Nonobstructing right renal calculi. Labs on day of discharge: Labs from last 24 hours 01/28/22 01/27/22 01/27/22 09:23 21:00 21:00 Sodium 139 Potassium 3.2 L Chloride 105 Carbon Dioxide 24.7 Anion Gap 9.3 BUN 10 Creatinine 1.1 Estimated GFR/1.73 m2 >= 60.00 Glucose 164 H Calcium 8.6 Urine Color Yellow Urine Clarity Clear Urine pH 6.0 Ur Specific [place] 1.020 Urine Protein Negative Urine Ketones Negative Urine Blood Negative Urine Nitrite Negative Urine Bilirubin Negative Urine Urobilinogen 1.0 H Ur Leukocyte Esterase Trace H Urine RBC 0-2 Urine WBC 10-20 H Ur Epithelial Cells Few Urine Crystals Negative Urine Bacteria Few Urine Casts Negative Urine Mucus Trace Ur Culture Indicated? No Urine Glucose Negative Urine Opiates Screen Negative Urine Methadone Screen Negative Ur Barbiturates Screen Negative Ur Tricyclics Screen Negative Ur Amphetamines Screen Negative U Benzodiazepines Scrn Positive A Urine Cocaine Screen Negative Ur THC Screen Negative Hepatitis A Ab Total Hep Bs Antigen Hep Bs Antibody Hep Bs Antibody, Quant Hep B Core Total Ab Hepatitis C Antibody 01/27/22 07:15 Sodium Potassium Chloride Carbon Dioxide Anion Gap BUN Creatinine Estimated GFR/1.73 m2 Glucose Calcium Urine Color Urine Clarity Urine pH Ur Specific [place] Urine Protein Urine Ketones Urine Blood Urine Nitrite Urine Bilirubin Urine Urobilinogen Ur Leukocyte Esterase Urine RBC Urine WBC Ur Epithelial Cells Urine Crystals Urine Bacteria Urine Casts Urine Mucus Ur Culture Indicated? Urine Glucose Urine Opiates Screen Urine Methadone Screen Ur Barbiturates Screen Ur Tricyclics Screen Ur Amphetamines Screen U Benzodiazepines Scrn Urine Cocaine Screen Ur THC Screen Hepatitis A Ab Total Negative Hep Bs Antigen Negative Hep Bs Antibody Negative Hep Bs Antibody, Quant <3.1 Hep B Core Total Ab Negative Hepatitis C Antibody Negative PFSH All Active Problems Acute hepatic encephalopathy (Acute) DVT prophylaxis (Acute) Discharge planning issues (Acute) Alcohol abuse (Chronic) Depression (Chronic) Erectile dysfunction (Acute) Alcoholism (Acute) Dysthymia (Acute) Suicidal ideations (Acute 08/25/17) Orthostatic hypotension (Chronic 04/20/18) Microscopic hematuria (Acute 04/24/16) Elevated LFTs (Chronic 08/25/17) Benign prostate hyperplasia (Acute 11/20/15) 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 Father No problems noted. Brother No problems noted. Grandfather No problems noted. Grandfather No problems noted. Grandmother No problems noted. Grandmother No problems noted. 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
[2022-01-28] MEDS: Potassium Chloride Liquid 20 MEQ PKT 40 MEQ PO (17:57)
[2022-01-28 19:53] VITALS: BP 119/79; PULSE 81; RESP 18; TEMP 36.6; O2SAT 94
[2022-01-28] MEDS: Melatonin 3 MG TAB 6 MG PO (21:01)
[2022-01-29 00:30] VITALS: BP 142/84; PULSE 74; RESP 17; TEMP 36.5; O2SAT 96
[2022-01-29 03:46] VITALS: BP 137/82; PULSE 81; RESP 18; TEMP 36.4; O2SAT 94
[2022-01-29 07:25] LABS: Anion Gap 6.6 mmol/L (3-11); BUN 13 mg/dL (7-18); CO2 26.4 mmol/L (21.0-32.0); CREATININE 0.9 mg/dL (0.70-1.30); Calcium 8.3 mg/dL (8.5-10.1); Chloride 106 mmol/L (98-107); Glucose 104 mg/dL (74-106); Potassium 3.5 mmol/L (3.5-5.1); Sodium 139 mmol/L (136-145)
[2022-01-29 07:31] VITALS: BP 137/83; PULSE 83; RESP 17; TEMP 36.5; O2SAT 93
[2022-01-29] MEDS: chlordiazePOXIDE 25 MG CAP 50 MG PO (08:03)
[2022-01-29] MEDS: Normal Saline Flush 10 ML SYR IVP (08:03)
[2022-01-29] MEDS: THIAMINE 500 MG in Normal Saline 100 ML 200 MG IVPB (08:03)
[2022-01-29] MEDS: Potassium Chloride Liquid 20 MEQ PKT 40 MEQ PO (08:03)
[2022-01-29] MEDS: Fludrocortisone 0.1 MG TAB PO (08:04)
[2022-01-29] MEDS: Citalopram 20 MG TAB PO (08:04)
[2022-01-29] MEDS: Multivitamin TAB 1 TAB PO (08:04)
[2022-01-29] MEDS: Folic Acid 1 MG TAB PO (08:04)
--- NOTE | 2022-01-29 09:12 | CMDISCH_ITS ---
- If Service Date Differs Date of service: 01/29/22 Time of Service: 09:12 LACE Index Scoring Tool - Questions: Length of Stay (in days): 3 Acuity (Admit via E.D.?): Yes E.D. Visits: 2 - Answers: Total Score: 8 Risk of Readmission: Low Risk Care Management Discharge Reason for Hospitalization: Hepatic encephalopathy, ETOH withdrawal Discharge Plan: Kyle will discharge to [facility] for inpatient substance use treatment. He will transport via private vehicle with [employer]; Bren. Patient/Family Education Needs: Review discharge instructions, discuss Ask Me Three. Services Needed at Discharge: [facility] ([facility] ), Transportation ([employer] )
== END 2022-01-29 09:08 | disposition other institution (70) | DRG 433 ==
LOC: ER 14:14 → MS 14:47
PROVIDERS: Nurse Practitioner Family; Student in an Organized Health Care Education/Training Program; Admitting Provider Internal Medicine; Emergency Provider Student in an Organized Health Care Education/Training Program; PCP Family Medicine; Visit Provider Internal Medicine
DX: K70.40 Alcoholic hepatic failure without coma (principal); F10.239 Alcohol dependence with withdrawal, unspecified; R45.851 Suicidal ideations; E51.2 Wernicke's encephalopathy; F10.27 Alcohol dependence with alcohol-induced persisting dementia; F32.A Depression, unspecified; G62.1 Alcoholic polyneuropathy; Y90.8 Blood alcohol level of 240 mg/100 ml or more; F10.229 Alcohol dependence with intoxication, unspecified; F34.1 Dysthymic disorder; I95.1 Orthostatic hypotension; N40.0 Benign prostatic hyperplasia without lower urinary tract symptoms; T43.206A Underdosing of unspecified antidepressants, initial encounter; K76.0 Fatty (change of) liver, not elsewhere classified
CPT/HCPCS: 36415; 80048; 80053; 80307; 83690; 86704; 86706; 86709; 86803; 87340; 87635; 93005; 96361; 96365; 96366; 96368; 96375; 99285; 70450; 76705; 80320; 81003; 81015; 82140; 82607; 82746; 83735; 84443; 84484; 85025; 93010; 99222; 99238; J1644; J2060; J3480

== ENCOUNTER 2022-03-14 15:12 | Emergency (ER) | payer MEDICARE, MEDICAID, SELFPAY ==
[2022-03-14 15:21] VITALS: BP 124/77; PULSE 94; RESP 16; TEMP 36.1; O2SAT 96
--- NOTE | 2022-03-14 15:45 | RT.EKG_ITS ---
APPROVED REPORT Exam: Resting ECG Reason for Exam: fatigue Patient Location: E HR:88 bpm ECG Measurements Heart Rate 88 AXIS MD 166 P 59 QRSd 99 QRS -87 QT 356 T 64 QTc 432 Conclusion Sinus rhythm...normal P axis, V-rate 60- 99 Probable left atrial enlargement...P >50mS, <-0.10mV V1 Left anterior fascicular block...axis(240,-40), init forces inf Low voltage, precordial leads...precordial leads <1.0mV
--- NOTE | 2022-03-14 15:56 | ED.GENADUL_ITS ---
Discharge Plan Disposition Patient Disposition: HOME Condition: Stable Discharge Details Clinical Impression: Fatigue, Acute UTI Primary Care Provider: Jeff Sage ED Provider: Moshe Lopez Home Meds and New Rx's Prescriptions: New cephalexin 500 mg capsule 500 mg PO BID Qty: 19 0RF Continued fludrocortisone 0.1 mg Tablet 0.1 mg PO DAILY Qty: 30 0RF chlordiazepoxide HCl 25 mg Capsule 50 mg PO TID Qty: 7 0RF Rx Instructions: 50 x TID x 1 day then 25 bid x 3 days then 12.5 x 3 days Discharge Instructions Instructions: Urinary Tract Infection in Men (ED), Fatigue (ED) Additional Instructions: Please take full course of antibiotic as prescribed. Please drink plenty of fluids to stay hydrated and avoid exposure to hot environments over the next few days. Please contact your primary care physician to arrange follow-up. Call on Wednesday to arrange followup. Return to the ER immediately for any worsening or new concerning symptoms. Referrals: Jeff Sage MD [Primary Care Provider] - Medical Decision Making 1600 --67-year-old male here with generalized fatigue for the past 4 to 5 days. Patient is neurologically intact and hemodynamically stable. Patient was attempting to walk to the store today and it is excessively hot outside. I am concerned about heat exhaustion. Consider electrolyte abnormalities. Patient denies recent alcohol use. He notes he has not had a drink in 3 weeks. Consider arrhythmia. Plan to obtain EKG. Plan to give p.o. fluid rehydration. -- EKG was reviewed and interpreted by me: Please see report, nondiagnostic. -- Labs reviewed and creatinine slightly elevated at 1.3 with elevated BUN of 21. Suspect mild dehydration. Patient tolerating oral rehydration. Urinalysis reviewed and is consistent with urinary tract infection. I will initiate treatment with Keflex. Plan for discharge with outpatient follow-up. Medical screening was performed today. Customary usual customary discharge instructions reviewed with the patient. Medical Records Medical records reviewed: Yes I reviewed the patient's medical records. Lab Data Lab results reviewed: Yes I reviewed the patient's lab results. Labs: 03/14/22 15:05 Urine - Reflex from Ua Urine Culture - Pending Laboratory Tests Range/Units 03/14/22 03/14/22 03/14/22 15:05 15:05 15:35 WBC (4.4-10.8) 10^3/uL RBC (4.36-5.78) 10^6/uL Hgb (13.5-17.5) g/dL Hct (40.0-50.0) % MCV (80-95) fL MCH (27.0-33.0) pg MCHC (32.0-36.0) % RDW (11.8-14.1) % Plt Count (130-400) 10^3/uL MPV (8.0-11.0) fL Immature Gran % Neutrophils % Lymphocytes % Monocytes % Eosinophils % Basophils % Nucleated RBC % (0.0-0.3) % Absolute Neutrophils (1.2-6.7) 10^3/uL Absolute Lymphocytes (1.2-3.4) 10^3/uL Absolute Monocytes (0.1-0.8) 10^3/uL Absolute Eosinophils (0.0-0.7) 10^3/uL Absolute Basophils (0.0-0.2) 10^3/uL Sodium (136-145) mmol/L Potassium (3.5-5.1) mmol/L Chloride (98-107) mmol/L Carbon Dioxide (21.0-32.0) mmol/L Anion Gap (3-11) mmol/L BUN (7-18) mg/dL Creatinine (0.70-1.30) mg/dL Estimated GFR/1.73 m2 (mL/min/1.73m2) Glucose (74-106) mg/dL Calcium (8.5-10.1) mg/dL Magnesium (1.8-2.4) mg/dL Total Bilirubin (0.2-1.0) mg/dL AST (15-37) U/L ALT (16-63) U/L Alkaline Phosphatase (46-116) U/L Creatine Kinase (39-308) U/L Troponin I (<or=60) ng/L Total Protein (6.4-8.2) g/dL Albumin (3.4-5.0) g/dL Lipase Cancelled Urine Color (Yellow) Yellow Urine Clarity (Clear) Cloudy Urine pH (5-8) 6.0 Ur Specific [place] (1.005-1.025) >= 1.030 H Urine Protein (Negative) mg/dL 30 H Urine Ketones (Negative) mg/dL Negative Urine Blood (Negative) Small H Urine Nitrite (Negative) Negative Urine Bilirubin (Negative) Negative Urine Urobilinogen (Up TO 0.2) EU/dL 2.0 H Ur Leukocyte Esterase (Negative) Moderate H Urine RBC (0-2) HPF 5-10 H Urine WBC (0-5) HPF >50 H Ur Epithelial Cells (Negative) HPF Negative Urine Crystals (Negative) HPF Negative Urine Bacteria (Negative) HPF Urine Mucus (Negative) Negative Ur Culture Indicated? Yes Urine Glucose (Negative) mg/dL Negative Urine Opiates Screen (Negative) Negative Urine Methadone Screen (Negative) Negative Ur Barbiturates Screen (Negative) Negative Ur Tricyclics Screen (Negative) Negative Ur Amphetamines Screen (Negative) Negative U Benzodiazepines Scrn (Negative) Positive A Urine Cocaine Screen (Negative) Negative Ur THC Screen (Negative) Negative Ethyl Alcohol (<10) mg/dL COVID-19 Source SARS-CoV-2 (PCR) Range/Units 03/14/22 03/14/22 03/14/22 15:36 15:51 15:51 WBC (4.4-10.8) 10^3/uL 10.36 RBC (4.36-5.78) 10^6/uL 4.68 Hgb (13.5-17.5) g/dL 15.0 Hct (40.0-50.0) % 44.5 MCV (80-95) fL 95 MCH (27.0-33.0) pg 32.1 MCHC (32.0-36.0) % 33.7 RDW (11.8-14.1) % 12.2 Plt Count (130-400) 10^3/uL 284 MPV (8.0-11.0) fL 10.7 Immature Gran % 0.3 Neutrophils % 70.3 Lymphocytes % 19.0 Monocytes % 4.3 Eosinophils % 5.4 Basophils % 0.7 Nucleated RBC % (0.0-0.3) % 0.0 Absolute Neutrophils (1.2-6.7) 10^3/uL 7.28 H Absolute Lymphocytes (1.2-3.4) 10^3/uL 1.97 Absolute Monocytes (0.1-0.8) 10^3/uL 0.45 Absolute Eosinophils (0.0-0.7) 10^3/uL 0.56 Absolute Basophils (0.0-0.2) 10^3/uL 0.07 Sodium (136-145) mmol/L 140 Potassium (3.5-5.1) mmol/L 4.0 Chloride (98-107) mmol/L 105 Carbon Dioxide (21.0-32.0) mmol/L 23.6 Anion Gap (3-11) mmol/L 11.4 H BUN (7-18) mg/dL 21 H Creatinine (0.70-1.30) mg/dL 1.3 Estimated GFR/1.73 m2 (mL/min/1.73m2) 55.06 Glucose (74-106) mg/dL 142 H Calcium (8.5-10.1) mg/dL 10.0 Magnesium (1.8-2.4) mg/dL 2.0 Total Bilirubin (0.2-1.0) mg/dL 0.6 AST (15-37) U/L 29 ALT (16-63) U/L 35 Alkaline Phosphatase (46-116) U/L 79 Creatine Kinase (39-308) U/L Troponin I (<or=60) ng/L < 50 Total Protein (6.4-8.2) g/dL 8.2 Albumin (3.4-5.0) g/dL 3.9 Lipase Urine Color (Yellow) Urine Clarity (Clear) Urine pH (5-8) Ur Specific [place] (1.005-1.025) Urine Protein (Negative) mg/dL Urine Ketones (Negative) mg/dL Urine Blood (Negative) Urine Nitrite (Negative) Urine Bilirubin (Negative) Urine Urobilinogen (Up TO 0.2) EU/dL Ur Leukocyte Esterase (Negative) Urine RBC (0-2) HPF Urine WBC (0-5) HPF Ur Epithelial Cells (Negative) HPF Urine Crystals (Negative) HPF Urine Bacteria (Negative) HPF Urine Mucus (Negative) Ur Culture Indicated? Urine Glucose (Negative) mg/dL Urine Opiates Screen (Negative) Urine Methadone Screen (Negative) Ur Barbiturates Screen (Negative) Ur Tricyclics Screen (Negative) Ur Amphetamines Screen (Negative) U Benzodiazepines Scrn (Negative) Urine Cocaine Screen (Negative) Ur THC Screen (Negative) Ethyl Alcohol (<10) mg/dL COVID-19 Source Cancelled SARS-CoV-2 (PCR) Cancelled Range/Units 03/14/22 15:51 WBC (4.4-10.8) 10^3/uL RBC (4.36-5.78) 10^6/uL Hgb (13.5-17.5) g/dL Hct (40.0-50.0) % MCV (80-95) fL MCH (27.0-33.0) pg MCHC (32.0-36.0) % RDW (11.8-14.1) % Plt Count (130-400) 10^3/uL MPV (8.0-11.0) fL Immature Gran % Neutrophils % Lymphocytes % Monocytes % Eosinophils % Basophils % Nucleated RBC % (0.0-0.3) % Absolute Neutrophils (1.2-6.7) 10^3/uL Absolute Lymphocytes (1.2-3.4) 10^3/uL Absolute Monocytes (0.1-0.8) 10^3/uL Absolute Eosinophils (0.0-0.7) 10^3/uL Absolute Basophils (0.0-0.2) 10^3/uL Sodium (136-145) mmol/L Potassium (3.5-5.1) mmol/L Chloride (98-107) mmol/L Carbon Dioxide (21.0-32.0) mmol/L Anion Gap (3-11) mmol/L BUN (7-18) mg/dL Creatinine (0.70-1.30) mg/dL Estimated GFR/1.73 m2 (mL/min/1.73m2) Glucose (74-106) mg/dL Calcium (8.5-10.1) mg/dL Magnesium (1.8-2.4) mg/dL Total Bilirubin (0.2-1.0) mg/dL AST (15-37) U/L ALT (16-63) U/L Alkaline Phosphatase (46-116) U/L Creatine Kinase (39-308) U/L 80 Troponin I (<or=60) ng/L Total Protein (6.4-8.2) g/dL Albumin (3.4-5.0) g/dL Lipase Urine Color (Yellow) Urine Clarity (Clear) Urine pH (5-8) Ur Specific [place] (1.005-1.025) Urine Protein (Negative) mg/dL Urine Ketones (Negative) mg/dL Urine Blood (Negative) Urine Nitrite (Negative) Urine Bilirubin (Negative) Urine Urobilinogen (Up TO 0.2) EU/dL Ur Leukocyte Esterase (Negative) Urine RBC (0-2) HPF Urine WBC (0-5) HPF Ur Epithelial Cells (Negative) HPF Urine Crystals (Negative) HPF Urine Bacteria (Negative) HPF Urine Mucus (Negative) Ur Culture Indicated? Urine Glucose (Negative) mg/dL Urine Opiates Screen (Negative) Urine Methadone Screen (Negative) Ur Barbiturates Screen (Negative) Ur Tricyclics Screen (Negative) Ur Amphetamines Screen (Negative) U Benzodiazepines Scrn (Negative) Urine Cocaine Screen (Negative) Ur THC Screen (Negative) Ethyl Alcohol (<10) mg/dL < 3.0 COVID-19 Source SARS-CoV-2 (PCR) HPI General Mode of arrival: ambulatory . Date/Time Provider Initiated Documentation: 03/14/22 15:31 . Limitations to Documentation: no limitations . Information obtained by: patient . HPI Narrative: 67-year-old male with history of encephalopathy, alcoholism, orthostatic hypotension noted in the past, here with chief complaint of generalized fatigue. Patient notes he has had fatigue over the past 4 to 5 days. Symptoms have been persistent. Fatigue is moderate to severe. No associated chest pain. No headache. No abdominal pain. No shortness of breath or cough. No fever. No swelling. Patient notes he was attempting to walk to the store today and it was excessively hot out and he became overwhelmingly fatigued and had to sit down. A bystander noted his color seemed off and encouraged him to come to the emergency department. Related Data Home Medications Medication Instructions Recorded Confirmed chlordiazepoxide HCl 25 mg capsule 50 mg PO TID #7 caps 01/28/22 03/14/22 fludrocortisone 0.1 mg tablet 0.1 mg PO DAILY #30 tabs 01/28/22 03/14/22 cephalexin 500 mg capsule 500 mg PO BID #19 caps 03/14/22 Previous Rx's Medication Instructions Recorded chlordiazepoxide HCl 25 mg capsule 50 mg PO TID #7 caps 01/28/22 fludrocortisone 0.1 mg tablet 0.1 mg PO DAILY #30 tabs 01/28/22 cephalexin 500 mg capsule 500 mg PO BID #19 caps 06/25/22 Allergies Allergy/AdvReac Type Severity Reaction Status Date / Time Iodine and Iodide Containing Allergy Mild Mild hives Verified 03/14/22 15:28 Produc iodine Allergy Unknown Verified 03/14/22 15:28 General Stated Complaint: GenMedical SHARA: 2 Review of Systems All systems reviewed & are unremarkable except as noted in HPI and below Constitutional Constitutional: Denies fever(s) Cardiovascular Cardiovascular: Denies chest pain and Denies dyspnea Respiratory Respiratory: Denies cough and Denies dyspnea PFSH All Active Problems (Updated 03/14/22 @ 16:37 by Moshe Lopez MD) Encephalopathy (Acute) Fatigue (Acute) Acute UTI (Acute) Erectile dysfunction (Acute) Alcoholism (Acute) Dysthymia (Acute) Suicidal ideations (Acute 08/25/17) Orthostatic hypotension (Chronic 04/20/18) Microscopic hematuria (Acute 04/24/16) Elevated LFTs (Chronic 08/25/17) Benign prostate hyperplasia (Acute 11/20/15) 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 Father No problems noted. Brother No problems noted. Grandfather No problems noted. Grandfather No problems noted. Grandmother No problems noted. Grandmother No problems noted. Social History Smoking/Tobacco Use Status: Never Smoking risk assessment performed?: Yes Alcohol Intake: current Alcohol Intake frequency: a few times a month Alcohol type: hard liquor Drug use: Never Substance use type: does not use Details: Pt drinks at least a third of a large bottle of Whiskey a day. has not been drinking lately. 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[employer] Pets and animals: Yes Pets and animals: cat(s) What type of physical activity do you participate in: none Rabia/[employer]: Mandaen Seatbelt use: always Do you feel safe at home: Yes Do you feel safe in your relationship?: Yes Exam Const General: cooperative and no acute distress HENMT Head: normocephalic and atraumatic Mouth: moist mucous membranes Eyes Conjunctivae: normal conjunctivae Sclera: normal sclerae Neck Neck: trachea midline and supple Resp Auscultation: clear to auscultation bilaterally, no rales, no rhonchi and no wheezes Cardio Rate: regular rate and not tachycardic Rhythm: regular rhythm GI Palpation: soft, not firm, no guarding, no masses, not rigid and nontender Skin General skin exam: no rashes or lesions noted Neuro General: patient alert, patient awake, patient oriented x3 and tone normal Cranial Nerves: CN's II-XI intact bilaterally Cognition: normal cognition Speech: speech normal Motor: muscle tone normal throughout and strength 5/5 throughout Sensory Exam: no sensory deficits noted Extrem General: no edema Psych Appearance: grossly normal Mental Status: mental status grossly normal Speech and Movement: speech and movement normal Course Vital Signs Vital signs: Vital Signs Temperature 36.1 C L 03/14/22 15:21 Pulse 94 H 03/14/22 15:21 Respiratory Rate 16 03/14/22 15:21 Blood Pressure 124/77 03/14/22 15:21 Pulse Oximetry 96 03/14/22 15:21 Temperature 36.1 C L 03/14/22 15:21 Temperature Source Temporal Artery Scan 03/14/22 15:21 Pulse 94 H 03/14/22 15:21 Respiratory Rate 16 03/14/22 15:21 Respiratory Effort 03/14/22 15:21 Blood Pressure 124/77 03/14/22 15:21 Blood Pressure Position Sitting 03/14/22 15:21 Pulse Oximetry 96 03/14/22 15:21 Oxygen Delivery Method Room Air 03/14/22 15:21 Oxygen Flow Rate 0 03/14/22 15:21 Pain Level 5 03/14/22 15:21 Lab/Test Results Lab/Test Results: Laboratory Tests Range/Units 03/14/22 03/14/22 15:35 15:36 Lipase Cancelled COVID-19 Source Cancelled SARS-CoV-2 (PCR) Cancelled
[2022-03-14 16:02] LABS: Abs Immature Grans 0.03 10^3/uL (0.0-0.06); Absolute Basophil Count 0.07 10^3/uL (0.0-0.2); Absolute Eosinophil Count 0.56 10^3/uL (0.0-0.7); Absolute Lymphocyte Count 1.97 10^3/uL (1.2-3.4); Absolute Monocyte Count 0.45 10^3/uL (0.1-0.8); Absolute Neutrophil Count 7.28 10^3/uL (1.2-6.7); Basophils % 0.7; Eosinophils % 5.4; HCT 44.5 % (40.0-50.0); Immature Grans % 0.3; MCH 32.1 pg (27.0-33.0); MCHC 33.7 % (32.0-36.0); MCV 95 fL (80-95); MPV 10.7 fL (8.0-11.0); Monocytes % 4.3; Neutrophils % 70.3; Platelet Count 284 10^3/uL (130-400); RBC 4.68 10^6/uL (4.36-5.78); RDW 12.2 % (11.8-14.1); RDW-SD 42.3 fL; WBC 10.36 10^3/uL (4.4-10.8)
[2022-03-14 16:07] VITALS: RESP 18
[2022-03-14 16:10] LABS: Bilirubin Negative (Negative); Blood Small (Negative); Clarity Cloudy (Clear); Glucose Negative (Negative); Ketones Negative (Negative); Leukocyte Esterase Moderate (Negative); Nitrite Negative (Negative); Specific Gravity >= 1.030 (1.005-1.025)
[2022-03-14 16:18] LABS: Creatine Kinase 80 U/L (39-308)
[2022-03-14 16:19] LABS: ALT 35 U/L (16-63); AST 29 U/L (15-37); Albumin 3.9 g/dL (3.4-5.0); Alkaline Phosphatase 79 U/L (46-116); Anion Gap 11.4 mmol/L (3-11); BUN 21 mg/dL (7-18); Bilirubin, Total 0.6 mg/dL (0.2-1.0); CO2 23.6 mmol/L (21.0-32.0); CREATININE 1.3 mg/dL (0.70-1.30); Chloride 105 mmol/L (98-107); Estimated GFR 55.06 (mL/min/1.73m2); Glucose 142 mg/dL (74-106); Sodium 140 mmol/L (136-145); Total Protein 8.2 g/dL (6.4-8.2); Troponin I < 50 ng/L (<or=60)
[2022-03-14 16:20] LABS: C & S Indicated? Yes; Crystals Negative HPF (Negative); Epithelial Cells Negative HPF (Negative); Mucus Negative (Negative); WBC >50 HPF (0-5)
[2022-03-14 16:22] LABS: *AMPHETAMINES SCREEN URINE Negative (Negative); *BARBITURATES SCREEN URINE Negative (Negative); *BENZODIAZEPINES SCREEN URINE Positive (Negative); Cannabinoids THC Negative (Negative); Cocaine Screen,Urine Negative (Negative); METHADONE URINE SCREEN Negative (Negative); OPIATES URINE SCREEN Negative (Negative); Tricyclic Antidepressants Negative (Negative)
[2022-03-14 16:31] VITALS: BP 126/72; PULSE 88; RESP 18; O2SAT 99
[2022-03-14 16:31] LABS: ETHANOL BLOOD < 3.0 mg/dL (<10)
[2022-03-14 17:14] VITALS: BP 137/71; PULSE 71; RESP 18; O2SAT 98
[2022-03-16 19:18] LABS: Chlamydia Result Negative (Negative); GC Result Negative (Negative)
== END 2022-03-14 17:06 | disposition home or self-care (01) ==
PROVIDERS: Physician Assistant; Emergency Provider Student in an Organized Health Care Education/Training Program; PCP Family Medicine
DX: R53.83 Other fatigue (principal); N39.0 Urinary tract infection, site not specified; F10.20 Alcohol dependence, uncomplicated
CPT/HCPCS: 80053; 80307; 82550; 83690; 87491; 87591; 87635; 93005; 99283; 80320; 81003; 81015; 83735; 84484; 85025; 87086; 93010

== ENCOUNTER 2022-05-20 13:29 | Outpatient (REF) | payer MEDICARE, MEDICAID, SELFPAY | END 2022-05-20 13:30 | disposition home or self-care (01) | LOC: LBN 13:29 | PROVIDERS: PCP Family Medicine; Visit Provider Family Medicine | DX: N39.0 Urinary tract infection, site not specified (principal) | CPT/HCPCS: 87086 ==

== ENCOUNTER 2022-12-02 11:09 | Outpatient (CLI) | payer MEDICARE, MEDICAID, SELFPAY ==
[2022-12-02 12:55] LABS: ALT 28 U/L (16-63); AST 20 U/L (15-37); Alkaline Phosphatase 93 U/L (46-116); Bilirubin, Direct 0.1 mg/dL (0.0-0.2); Bilirubin, Total 0.5 mg/dL (0.2-1.0)
[2022-12-02 13:05] LABS: Hemoglobin A1C 5.4 % (<5.7)
== END 2022-12-02 11:10 | disposition home or self-care (01) ==
LOC: LOS 11:09
PROVIDERS: PCP Family Medicine; Referring Provider Family Medicine; Visit Provider Family Medicine
DX: R73.9 Hyperglycemia, unspecified (principal); G72.89 Other specified myopathies; F10.10 Alcohol abuse, uncomplicated; G93.40 Encephalopathy, unspecified
CPT/HCPCS: 36415; 80076; 83036